=== PATIENT | male | born 1995 | race Caucasian/White ===

== ENCOUNTER 2024-04-08 19:33 | Emergency (ER) | payer SELFPAY ==
[~2024-04-08] VITALS: Ht 175.3 cm; Wt 100.0 kg
[2024-04-08 19:45] VITALS: BP 145/87; PULSE 112; RESP 18; O2SAT 99
[2024-04-08 21:40] LABS: BASOPHILS % 0.1 % (0.0-2.0); HEMATOCRIT. 43.2 % (42.0-52.0); HEMOGLOBIN. 14.6 g/dL (14.0-18.0); LYMPHOCYTES % 15.8 % (20.0-50.0); MEAN CORPUSCULAR HEMOGLOBIN 32.5 pg (28.0-32.0); MEAN CORPUSCULAR HGB CONC 33.7 g/dL (31.0-37.0); MEAN CORPUSCULAR VOLUME 96.3 fL (80.0-94.0); MEAN PLATELET VOLUME 7.5 fl (7.4-10.4); NEUTROPHILS % 74.1 % (40.0-76.0); PLATELET 296 x1000/uL (130-400); RED BLOOD CELL COUNT 4.48 mill/uL (4.7-6.1); RED CELL DISTRIBUTION WIDTH 12.8 % (11.6-14.6); WHITE BLOOD COUNT 11.7 x1000/uL (4.5-11.0)
[2024-04-08 21:46] LABS: CARBON DIOXIDE 24 mEq/L (21-32); CHLORIDE 103 mEq/L (98-107); POTASSIUM 3.4 mEq/L (3.5-5.1); SODIUM 144 mEq/L (136-145)
[2024-04-08 21:47] LABS: CALCIUM 8.9 mg/dL (8.7-10.4)
[2024-04-08 21:49] LABS: PROTHROMBIN TIME 10.7 sec (9.6-11.0)
[2024-04-08 21:52] LABS: CREATININE 0.9 mg/dL (0.6-1.3); GLUCOSE 116 mg/dL (70-105); UREA NITROGEN BLOOD 10 mg/dL (9-23)
[2024-04-08 22:04] LABS: ETHANOL BLOOD 433 mg/dL (<10)
[2024-04-08] MEDS ORDERED: PANTOPRAZOLE SODIUM 40 MG/VIAL IV ONE (22:30)
[2024-04-08] MEDS ORDERED: PANTOPRAZOLE SODIUM 40 MG/VIAL IV NR (22:30)
[2024-04-08] MEDS ORDERED: ONDANSETRON HCL 4MG/2ML INJ IV NR (22:30)
[2024-04-08] MEDS ORDERED: ONDANSETRON HCL 4MG/2ML INJ IV ONE (22:30)
[2024-04-08] MEDS: SODIUM CHLORIDE 0.9% 1,000 ML IV ONE (23:19)
== END 2024-04-09 00:46 | disposition home or self-care (01) ==
LOC: ER 19:50
DX: R41.82 Altered mental status, unspecified (principal); F10.129 Alcohol abuse with intoxication, unspecified; Y90.9 Presence of alcohol in blood, level not specified
CPT/HCPCS: 80048; 80320; 85025; 85610; 36415; 70450; 96360; 99284; J7030; G0480